=== PATIENT | female | born 1935 | race Caucasian/White ===

== ENCOUNTER 2015-09-29 14:30 | Inpatient (IN) | payer SELFPAY ==
[2013-02-03 05:02] VITALS: BP 120/52
--- NOTE | 2015-10-01 09:33 | History and Physical Report ---
CHIEF COMPLAINT: Weakness and advanced osteoarthritis bilateral pelvis and hips. HISTORY OF PRESENT ILLNESS: This is an 81-year-old female who initially until a year or two ago had been living at home. She and her German could no longer take care of their home so they moved into [facility] and had been living in one of the cottages there but because of progressive inability to ambulate she has chosen to move here because she does not feel like German can take here. Her German actually had polio and he has no use of his left arm and just recently had a right shoulder surgery. PAST MEDICAL HISTORY: Notable for history of atrial fibrillation, atherosclerotic coronary vascular disease for which she is status post placement of 3 stents, hypertension, diabetes mellitus type 2, hyperlipidemia. Other she has a history of peripheral vascular disease she has fairly bounding peripheral pulses. She has a history of urinary retention for which she self catheterizes 5 times a day. She has a history of gastroesophageal reflux and gout. PAST SURGICAL HISTORY: Cardiac stent x 3, cataract x 2, spontaneous vaginal delivery x 6, appendectomy , cholecystectomy, hemicolectomy with resultant colostomy which is in place now , hysterectomy. MEDICATIONS: 1. Reglan 5 mg p.o. t.i.d. 2. Ranitidine 150 mg p.o. b.i.d. 3. Simvastatin 20 mg p.o. q. day. 4. Levothyroxine 75 mcg daily. 5. Allopurinol 300 mg p.o. q.day. 6. Trimethoprim 100 mg p.o. q.day. 7. Cymbalta 60 mg p.o. q. day. 8. Spiriva 18 mcg by inhaler daily. 9. Restasis eye drops 1 drop OU q. day. 10. Nitrostat 0.4. mg p.o. q. 5 minutes p.r.n. chest pain. 11. Chem-Stick a.c. and h.s. 12. Imdur 60 mg p.o. b.i.d. 13. Losartan 100 mg p.o. q. day. 14. Topiramate 25 mg 2 tablets p.o. b.i.d. 15. Sodol 80 mg p.o. b.i.d. 16. Humulin 100 R by sliding scale. 17. Lantus 15 units sub cu q. h.s. 18. Lasix 60 mg 1 1/2 tablets p.o. b.i.d. ALLERGIES: BETA BLOCKERS. CODE STATUS: NO CODE BLUE STATUS is entered. IMMUNIZATIONS: SOCIAL HISTORY: She is to her second German. She was divorces previously. She and German have been for 22 years and she seems very happily and very appreciated of German. She worked as a computer program in the past. She has not smoked since 1985. No significant alcohol use. She has 6 grown children all but 2 whom live locally 1 does live in [place] the other lives in [place]. They are fairly involved with her. FAMILY HISTORY: REVIEW OF SYSTEMS: She actually some urinary frequency compared to what she usually has. She has not had any fevers, chills, nausea or vomiting. She has progressively more and more difficulty with ambulation. She had no significant pedal edema. No cough. Her heart is irregular but she says it has been that way for a quite awhile now. PHYSICAL EXAMINATION: GENERAL: Very pleasant, alert, oriented 81-year-old female. Her lower plate is out today but still very easily to understand. She usually has dentures in upper and lower plates. HEENT: Head-normocephalic and atraumatic. Mucous membranes are moist. No JVD was noted. No carotid bruits or thyroid masses. LUNGS: Clear. HEART: She has a pacemaker in place right upper chest. She says it is not a defibrillator although it is fairly large for a simple pacemaker. Breast exam deferred. ABDOMEN: Soft. She has a colostomy bag in the left mid abdomen seems to be functioning pretty well. There does not seem to be any surround rash surrounding the appliance itself. She does have a left lower abdominal ventral hernia. Mid line incision is noted from her previous colectomy. Pelvic exam deferred. EXTREMITIES: Warm and well perfused. She actually has probably 3-4+ pulses in both lower extremities but her feet are actually cold with a little bit of slow capillary refills but she has a very easily palpate dorsalis pedis posterior tibial pulses. DIAGNOSTIC STUDIES: No new labs available at this time. ASSESSMENT: 1. Advanced osteoarthritis bilateral hips and pelvis. 2. Atrial fibrillation currently not on full anticoagulation. 3. Atherosclerotic coronary vascular disease without evidence of ongoing ischemia. 4. Hypertension well controlled. 5. Urinary retention currently self catheterizing. 6. Diabetes she says most of her blood sugars are running around 100. We will see how those do we may need to get an A1C while she is here also. 7. Remote history of colon cancer. 8. Colostomy in place. PLAN: 1. Medications as already noted. She may benefit from physical therapy although by her history it sounds like she just had a simple progressive osteoarthritis of the hips and pelvis. A couple with diabetic neuropathy which makes ambulation more and more difficult. 2. Continue Accu-Cheks. 3. Her plan is stay here long term care social worker. NO CODE BLUE STATUS IS ENTERED. MTDD
--- NOTE | 2015-10-17 14:40 | History and Physical Report ---
ADMISSION: 10/16/15 CHIEF COMPLAINT: Recent transient ischemic attack. HISTORY OF PRESENT ILLNESS: This is an 80-year-old female who was in [facility] here at [facility] when she had what appeared to be TIA. She became aphasic. She was transferred to the emergency department. There was some confusion about whether we had TPA there or not and it was not given despite instruction by Dr. Dempsey at [facility] to do so. She was then transported there and still noted to have some stroke symptoms but those did over a short period of time apparently resolved. She had an MRI done which show no evidence of any intracerebral. CT also showed no stroke. Did show chronic aging changes. She returns to us today essentially back basically to her baseline. PAST MEDICAL HISTORY: Notable for history of atrial fibrillation although she is not anticoagulated because of history of rectal bleeding with anticoagulation. She has a history of atherosclerotic coronary vascular disease which she had been treated with percutaneous stent placement, hypertension, diabetes mellitus type 2, hyperlipidemia, peripheral vascular disease, urinary retention for which she self catheterized 5 times a day and history of gastroesophageal reflux and gout. PAST SURGICAL HISTORY: Cardiac stent x 3, cataract x 2, spontaneous vaginal delivery x 6, appendectomy , cholecystectomy, hemicolectomy with resultant colostomy which is now in place. MEDICATIONS: (She returns to us on): 1. Tylenol 1 gram t.i.d. 2. Allopurinol 300 mg p.o. q. a.m. 3. Vitamin C 500 mg p.o. q. a.m. 4. Aspirin 81 mg daily. 5. Dulcolax 20 mg p.o. q. a.m. 6. Centrum 1 p.o. q. day. 7. Restasis ophthalmic eye drops 1 drop OU b.i.d. 8. Diclofenac 50 mg every 6 hours p.r.n. pain. 9. Digoxin 0.125 mg p.o. q. day. 10. Diltiazem 180 mg p.o. q. day. 11. Colace 200 mg p.o. q. h.s. 13. Cymbalta 60 mg p.o. q. a.m. 14. Lasix 60 mg p.o. b.i.d. 15. Lantus 15 units at bedtime and sliding scale Humulin. 16. Imdur 60 mg p.o. b.i.d. 17. Lactase 3,000 units at need with each meal. 18. Levothyroxine 75 mcg daily. 19. Losartan 50 mg p.o. q. day. 20. Reglan 5 mg p.o. a.c. 21. Zantac 150 mg p.o. b.i.d. 22. Sotalol 80 mg p.o. 2 times a day. 23. Spiriva 18 mcg by inhalation daily. 24. Topiramate 50 mg p.o. b.i.d. 25. Simvastatin 40 mg daily. 26. Trimethamide 100 mg p.o. q. day. ALLERGIES: BETA BLOCKERS. CODE STATUS: NO CODE BLUE. IMMUNIZATIONS: Up-to-Date. SOCIAL HISTORY: She is to her second German. She was previously. She and German have been for 22 years. She seems very happily and is appreciative of German. 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 No significant alcohol use. She has 6 grown children of whom live locally. FAMILY HISTORY: REVIEW OF SYSTEMS: She states she is generally back to her baseline. She has had no chest pain or ostomy seems to be functioning well. PHYSICAL EXAMINATION: GENERAL: Very pleasant 80-year-old female. She does appear a little pale today. Her cognition seems to be well. She is no dysarthritic. Content of her speech is very good. HEENT: Head to be normocephalic and atraumatic. Mucous membranes are moist. She has poorly fitting dentures. No thyroid masses or carotid bruits. LUNGS: Clear. HEART: Pacemaker in right upper chest. ABDOMEN: Soft. No guarding or rebound. Functioning colostomy is noted in mid abdomen. EXTREMITIES: Warm and well perfused. No significant edema. DIAGNOSTIC STUDIES: ASSESSMENT: Recent transient ischemic attack. PLAN: She is admitted. Continue her current medications. She is not a candidate for more aggressive anticoagulation because of her atrial fibrillation. We will continue her on a baby aspirin 1 p.o. q. day and the rest of her medications. SAMMIE
--- NOTE | 2015-12-05 11:47 | Inpatient Progress Note ---
Subjective - Required Recertification Statement I anticipate X number of days because-include discharge plan: 10 - Review of Systems Events since last encounter: Serina has developed some abdominal pain and darker colored stools in her ostomy. She had some blood work this morning that was ordered by Dr. Valentin due to an elevated WBC after she had JOHN, and he was checking her to see if her WBC had come down. It has unfortunately gone up from 21K to 26K and her hemoglobin has dropped from 9.4 (which is her baseline per Dr. Valentin) to 8.1 today. Her pain has gotten gradually worse, and her blood sugars have gone over 300. General: Denies: Chills, Night Sweats HEENT: Denies: Head Aches, Visual Changes Pulmonary: Dyspnea (chronic) Cardiovascular: Denies: Chest Pain, Palpitations Gastrointestinal: Nausea, Abdominal Pain (right epigastric pain). Denies: Vomiting Genitourinary: Denies: Dysuria Musculoskeletal: Denies: Neck Pain, Shoulder Pain Neurological: Weakness. Denies: Confusion Objective - Exam Vitals and I&O: Vital Signs Temp Pulse Resp BP 120/52 02/03/13 05:00 Pulse Ox General: Alert (She appears somewhat pallid ), Oriented to Person, Oriented to Place, Oriented to Time, Moderate distress (due to abdominal pain.) HEENT: Atraumatic, PERRLA, EOMI, Mouth Mucous membr. moist/[place] Neck: Supple, No JVD Lungs: Wheezes, Prolonged Expiration, Decreased Air Movement Cardiovascular: Regular rate, Normal S1, Normal S2 Abdomen: Normal bowel sounds, Other (tender in the right mid epigastrium. Ostomy is funtioning well with soft, but dark (not melanotic) appearing stool noted.,) Extremities: Other (some edema). No: No clubbing Skin: Pale Neurological: Normal speech Psych/Mental Status: Mental status NL Assessment/Plan - Assessment/Plan (1) Abdominal pain Status: Acute Current Visit: Yes Assessment: Worsened Plan: have ordered a creatinine and CT abdomen and pelvis with contrast Phone consult with Dr. 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
--- NOTE | 2015-12-17 13:05 | History and Physical Report ---
ADMISSION: 12/13/15 CHIEF COMPLAINT: Abdominal pain. HISTORY OF PRESENT ILLNESS: This is an 80-year-old female well known to myself who actually had been initially transferred to [facility] on 12/06/15 because of increasing abdominal pain, increasing white count and low and dropping hemoglobin. She was transferred to [facility] where she was essentially observed. she was transfused 2 units of packed red blood cells and placed on protonics. She has not had any significant further bleeding with slow advancement of her diet. She is actually improved quite a bit. She did not have an EGD. She did not have any other significant studies. She says she is feeling quite bit better now but is a little bit weak. PAST MEDICAL HISTORY: Notable for diabetes mellitus type 2, atherosclerotic coronary vascular disease , gastroesophageal reflux disease, hypothyroidism, hyperlipidemia, hypertension and tremors. PAST SURGICAL HISTORY: Thyroidectomy, multiple laparotomies, hysterectomy for benign disease, cholecystectomy, appendectomy. He has had his colon resection with colostomy after perforation following polypectomy during colonoscopy. She has had multiple bowel obstruction in 2007, 2008, 2012 and 2013. MEDICATIONS: 1. Aspirin 81 mg daily. 2. Docusate 1 p.o. q. day. 3. Diclofenac 50 mg p.o. b.i.d. 4. Digoxin 0.125 mg p.o. q. day. 5. Diltiazem 180 mg p.o. q. day. 6. Xanax 0.25 mg p.o. b.i.d. p.r.n. anxiety. 7. Isosorbide 60 mg p.o. b.i.d. 8. Losartan 100 mg p.o. q. day. 9. Topamax 25 mg p.o. b.i.d. 10. Sotalol 80 mg p.o. q. day. 11. Simvastatin 20 mg p.o. q. day. 12. Levothyroxine 75 mcg daily. 13. Cymbalta 60 mg daily. 14. Allopurinol 100 mg p.o. q. day. 15. Trimethoprim for prevention of urinary tract infection. 16. Spiriva 1 puff inhaler daily. 17. Ranitidine 150 mg daily. 18. Reglan sliding scale insulin. ALLERGIES: NKDA. CODE STATUS: NO CODE BLUE. IMMUNIZATIONS: Up-to-date. SOCIAL HISTORY: She is to her German and has been now for about 27 years. She doesn't smoke, drink or taking any drugs. FAMILY HISTORY: Noncontributory. REVIEW OF SYSTEMS: Notable for essentially feeling quite bit better. She has not had any bloody emesis. No blood in her stools. No fevers, chills. No nausea or vomiting. Extremities are warm and well perfused. She states she does not have any significant leg pain although she had some before she was transferred. PHYSICAL EXAMINATION: GENERAL: Very pleasant, frail, elderly female. Her color is significantly better then her last visit. HEENT: Head-normocephalic and atraumatic. She does have false dentition. Mucous membranes are moist. No JVD or carotid bruits. LUNGS: Clear. HEART: Regular. ABDOMEN: Enumerable scars on her abdomen. Her ostomy is in place. She is slightly distended from gas she has very active bowel sounds. Quite bit of gas in her ostomy bag also. EXTREMITIES: Warm and well perfused. No significant breakdown. DIAGNOSTIC STUDIES: Labs done yesterday show a hemoglobin which actually as been staying pretty stable at 10.7 and white count had come down to 13. ASSESSMENT: 1. Recent gastrointestinal bleed with resultant anemia. 2. Hypokalemia markedly improved with supplementation. 3. Chronic back pain. 4. Atherosclerotic coronary vascular disease without any evidence of ongoing ischemia. 5. Colostomy in place. 6. Hypothyroidism. 7. Tremors. 8. Hypertension. PLAN: We will recheck her CBC again in a week and as well as a CMP to see if those are improving. I want to make sure certainly at least they are not worsening. Continue NO CODE BLUE. Continue current medications as noted and orders are written. May consider occupation and physical therapies as an outpatient status as I do think she can do that level of therapy. They do not think that she can marquez a Swing Bed. MTDD
[2016-05-21 15:54] VITALS: BP 178/71
== END 2016-09-20 21:30 | disposition expired | DRG 948 ==
LOC: ICF 14:30 → UNDODISIN 11-05 16:44
PROVIDERS: ADMIT Family Medicine; ATTEND Family Medicine
DX: R53.1 Weakness (principal)